=== PATIENT | female | born 1985 | race Caucasian/White ===

== ENCOUNTER 2020-12-28 19:17 | Emergency (ER) | payer MEDICAID, SELFPAY ==
[2020-12-28] MEDS ORDERED: Clindamycin 150 MG CAP ONE (19:55)
[2020-12-28] MEDS ORDERED: traMADol HCl 50 MG TAB ONE (19:55)
== END 2020-12-28 20:10 | disposition home or self-care (01) ==
LOC: MADERS 19:17
DX: K04.7 Periapical abscess without sinus (principal); D64.9 Anemia, unspecified; F17.210 Nicotine dependence, cigarettes, uncomplicated; Z79.899 Other long term (current) drug therapy
CPT/HCPCS: 99283

== ENCOUNTER 2021-06-07 18:51 | Emergency (ER) | payer OTHER, SELFPAY ==
[2021-06-08 23:16] LABS: SARS-CoV-2 PCR by NAA DETECTED (NotDetected)
== END 2021-06-07 19:44 | disposition home or self-care (01) ==
LOC: MADERS 18:51
DX: U07.1 COVID-19 (principal); J06.9 Acute upper respiratory infection, unspecified; D64.9 Anemia, unspecified; F17.210 Nicotine dependence, cigarettes, uncomplicated
CPT/HCPCS: 99283; U0003; U0005